=== PATIENT | female | born 1950 | race Caucasian/White ===

== ENCOUNTER → 2016-10-24 | Outpatient (CLI) | payer OTHER ==
[2016-10-24 09:26] LABS: HDL CHOLESTEROL 79.2 MG/DL (40.0-60.0); INDIRECT BILIRUBIN 0.6 MG/DL (0.0-0.8); TOTAL BILIRUBIN ADULT 0.7 MG/DL (0.2-1.0)
== END ==
LOC: CLAB 08:31
PROVIDERS: ATTEND Internal Medicine Interventional Cardiology
DX: E78.5 Hyperlipidemia, unspecified (principal)
CPT/HCPCS: 36415; 80061; 80076

== ENCOUNTER → 2017-11-02 | Outpatient (CLI) | payer OTHER ==
[2017-11-02 09:02] LABS: ALBUMIN 3.7 GM/DL (3.4-5.0); ALKALINE PHOSPHATASE 64 U/L (45-117); TOTAL PROTEIN 7.2 GM/DL (6.4-8.2)
[2017-11-02 09:03] LABS: ALT (GPT) 26 U/L (10-53); AST (GOT) 26 U/L (15-37); CHOLESTEROL 199 MG/DL (120-200); CHOLESTEROL/ HDL RATIO 2.99 RATIO; DIRECT BILIRUBIN ADULT 0.2 MG/DL (0.0-0.2); HDL CHOLESTEROL 66.4 MG/DL (40.0-60.0); INDIRECT BILIRUBIN 1.1 MG/DL (0.0-0.8); LDL CHOLESTEROL 120 MG/DL (0-99); TOTAL BILIRUBIN ADULT 1.3 MG/DL (0.2-1.0); TRIGLYCERIDES 63 MG/DL (42-150)
== END ==
LOC: CLAB 07:09
DX: E78.5 Hyperlipidemia, unspecified (principal)
CPT/HCPCS: 36415; 80061; 80076